=== PATIENT | female | born 2005 | race Caucasian/White ===

== ENCOUNTER 2025-03-27 02:01 | Emergency (ER) | payer SELFPAY ==
[~2025-03-27] VITALS: Ht 165.1 cm; Wt 79.4 kg
[~2025-03-27 02:01] MED LIST: SEPTDS PO
[2025-03-27] MEDS ORDERED: Acetaminophen/Hydrocodone 5 MG/325 MG TABLET PO ONE (02:15)
[2025-03-27] MEDS ORDERED: PENICILLIN V POTASSIUM 500 MG TAB PO ONE (02:15)
[2025-03-27] MEDS ORDERED: Ondansetron Hydrochloride 4 MG TAB SL ONE (02:15)
[2025-03-27] MEDS ORDERED: PENICILLIN VK500 MG PO (02:16)
== END 2025-03-27 02:27 | disposition home or self-care (01) ==
LOC: ED 02:01
DX: K02.9 Dental caries, unspecified (principal); Z79.2 Long term (current) use of antibiotics